=== PATIENT | male | born 1975 | race Caucasian/White ===

== ENCOUNTER 2020-07-16 17:37 | Emergency (ER) | payer SELFPAY ==
[~2020-07-16] VITALS: Ht 172.7 cm; Wt 68.5 kg
[2020-07-16 17:39] VITALS: BP 151/106
--- NOTE | 2020-07-16 17:50 | NUR ---
PATIENT AMBULATED TO BED 11.
--- NOTE | 2020-07-16 18:15 | NUR ---
C/O RIGHT FLANK PAIN X 2 DAYS. DENIES DYSURIA , TRAUMA, FEVER OR N/V. ABDOMEN SOFT,FLAT, NON TENDER. DATE OF LAST BM UNK. BOWEL SOUNDS PRESENT X4. PT APPEARS INTOXICATED.
--- NOTE | 2020-07-16 18:20 | NUR ---
JOE COLEMAN AT BEDSIDE EVALUATING PT
[2020-07-16 18:46] VITALS: BP 132/88
== END 2020-07-16 18:46 | disposition home or self-care (01) ==
LOC: MED 17:37
DX: S20.211A Contusion of right front wall of thorax, initial encounter (principal); W18.39XA Other fall on same level, initial encounter; Y93.89 Activity, other specified; Y92.89 Other specified places as the place of occurrence of the external cause; Y99.8 Other external cause status
CPT/HCPCS: 71045; 81002; 99283; Q0092